=== PATIENT | male | born 1995 | race African-American/Black ===

== ENCOUNTER 2020-09-07 01:58 | Emergency (ER) | payer BC ==
[~2020-09-07] VITALS: Ht 165.1 cm; Wt 72.6 kg
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
--- NOTE | 2020-09-07 02:16 | NUR ---
XRAY AT BEDSIDE
[2020-09-07] MEDS ORDERED: IBUPROFEN 400 MG TABLET ONE (02:24)
[2020-09-07] MEDS: IBUPROFEN 400 MG TABLET PO ONE (02:25)
[2020-09-07] MEDS ORDERED: IBUP-1957 PO (02:39)
--- NOTE | 2020-09-07 02:45 | NUR ---
Patient discharged to home in stable condition. Written and verbal after care instructions given. Patient verbalizes understanding of instruction. pT ambulatory with a steady gait
[2020-09-07 02:47] VITALS: BP 124/79
== END 2020-09-07 02:46 | disposition home or self-care (01) ==
LOC: EDBD 02:00 → ER 02:00
DX: S13.4XXA Sprain of ligaments of cervical spine, initial encounter (principal); V49.49XA Driver injured in collision with other motor vehicles in traffic accident, initial encounter; Y93.89 Activity, other specified; Y92.413 State road as the place of occurrence of the external cause; Y99.8 Other external cause status
CPT/HCPCS: 72040-TC